=== PATIENT | female | born 1955 | race Caucasian/White ===

== ENCOUNTER 2017-02-24 07:00 | Day surgery (SDC) | payer BC ==
[2017-02-24] MEDS ORDERED: LIDOCAINE 1% W/EPI 1:200,000 MPF 30ML SQ ONE (10:41)
[2017-02-24] MEDS ORDERED: DEXAMETHASONE PRESERVATIVE FREE 10MG/ML VIAL IV ONE (10:41)
[2017-02-24] MEDS ORDERED: BUPIVACAINE 0.5% W/EPI MPF 30 ML VIAL IVP ONE (10:41)
[2017-02-24] MEDS ORDERED: PROPOFOL 10 MG/ML VIAL IV ONE (13:31)
[2017-02-24] MEDS ORDERED: MIDAZOLAM HCL 2MG/2ML VIAL IV ONE (13:31)
[2017-02-24] MEDS ORDERED: *PACU ONLY* KETAMINE HCL 10 MG/ML (20ML) VIAL IV ONE (13:31)
[2017-02-24] MEDS ORDERED: ALFENTANIL HCL 500 MCG/1ML, 2ML AMP IV ONE (13:31)
--- NOTE | 2017-02-24 15:10 | Operative Note - [place] ---
DATE OF SURGERY: 02/24/17 PREOPERATIVE DIAGNOSIS: CERVICAL SPONDYLOSIS WITHOUT MYELOPATHY, ICD-10 CODE = M47.812. OPERATION: RADIOFREQUENCY RHIZOTOMY RIGHT CERVICAL FACETS 3-4, 4-5, AND 5-6. SURGEON: FORTUNATO SHARP D.O. ANESTHESIA: LOCAL SEDATION. ANESTHESIA PROVIDER: MAX KNIGHT CRNA. INDICATION: This patient presents with primary neck pain. Examination shows tenderness in the cervical spine. Range of motion does cause pain to the neck with extension. Diagnostic imaging shows diffuse multiple levels of spondylosis with a primary 4-5 disc. A facet series 75-plus percent pain control. Due to the failure of therapy and the success of facet series, the patient presents today for rhizotomy for more long-term relief. PROCEDURE: Intravenous line, vital sign monitoring, IV sedation, prepped, draped, sterile technique. Under imaging, cervical facet levels on the right 3-4 , 4-5, and 5-6 were identified and marked. Skin infiltrated. A 22-gauge rhizotomy cannula positioned. Stimulation trials conducted. Rhizotomy burn performed. Local with anti-inflammatory into the sites. Topical antibiotics. Sterile dressing applied. We will monitor and evaluate. The rhizotomy was performed unilaterally today because of revised insurance guidelines limiting number of levels and bilateral technique. She will return on the required period of time for the opposite, left. cc: Dr. Napier JOB NUMBER: [id number] MTDD
== END 2017-02-24 09:12 | disposition home or self-care (01) ==
LOC: SUR 07:00
PROVIDERS: ATTEND Pain Medicine Interventional Pain Medicine
DX: M47.812 Spondylosis without myelopathy or radiculopathy, cervical region (principal); J44.9 Chronic obstructive pulmonary disease, unspecified
CPT/HCPCS: 64633; 64634 ×2; 01936; J1100